=== PATIENT | female | born 1960 | race Two or more races ===

== ENCOUNTER 2021-09-06 15:32 | Emergency (ER) | payer MEDICAID, SELFPAY ==
--- NOTE | ~2021-09-06 | XR_ITS ---
EXAMINATION: XR SHOULDER, LEFT CLINICAL INFORMATION: Fall, trauma, pain COMPARISON: None TECHNIQUE: Left shoulder is imaged in 3 views. FINDINGS: There is no fracture or dislocation. The acromioclavicular alignment appears normal. Left lung apex shows no pneumothorax or pleural reaction. There are no visible rotator cuff calcifications. XR/XR shoulder LT min 2V IMPRESSION: Unremarkable left shoulder.
[2021-09-06 16:25] VITALS: BP 109/65; PULSE 84; RESP 19; TEMP 36.9; O2SAT 96; BMI 21.4
--- NOTE | 2021-09-06 18:08 | ED_ITS ---
HPI - Extremity Problem General Chief complaint: Extremity Injury, Upper Stated complaint: shoulder pain Time Seen by Provider: 09/06/21 18:04 Source: patient Mode of arrival: ambulatory Limitations: no limitations History of Present Illness HPI Narrative: 61-year-old female previously healthy here with reports of left shoulder pain for 3 months after a mechanical fall. Patient tells me she had a trip and fall landing on the left shoulder. There was no head injury or loss of consciousness. Since then she has had persistent left shoulder pain with radiation down the arm. She is taking Motrin with continued symptoms. She tells me that she does not have a primary care doctor and has tried calling and has an appointment in October of next year to be seen. Related Data Previous Rx's Medication Instructions Recorded cyclobenzaprine 10 mg tablet 10 mg PO TID PRN #10 tab 09/06/21 ibuprofen 600 mg tablet 600 mg PO Q8H PRN #20 tab 09/06/21 prednisone 20 mg tablet 40 mg PO DAILY #10 tab 09/06/21 Allergies Allergy/AdvReac Type Severity Reaction Status Date / Time ENVIROMENTAL Allergy Unknown ITCHY EYES Uncoded 06/02/20 17:13 Review of Systems Review of Systems: Yes all other systems are reviewed and are negative Constitutional: Constitutional: Reports no additional constitutional complaints, Denies body ache(s), Denies chills, Denies fever(s), Denies headache(s) and Denies weakness Eyes: Eyes: Reports no additional eye complaints and Denies change in vision ENT: Reports system reviewed and no additional complaints, except as documented, Denies dizziness, Denies headache(s), Denies nasal congestion, Denies nasal discharge and Denies neck pain Cardiovascular: Cardiovascular: Reports no additional cardiovascular complaints, Denies chest pain, Denies leg edema and Denies dyspnea Respiratory: Respiratory: Reports no additional respiratory complaints, Denies cough and Denies dyspnea Gastrointestinal: Gastrointestinal: Reports no additional gastrointestinal complaints, Denies abdominal pain, Denies diarrhea, Denies nausea and Denies vomiting Genitourinary: Genitourinary: Reports no additional female genitourinary complaints and Denies urinary incontinence Musculoskeletal: Musculoskeletal: Reports no additional musculoskeletal complaints, Denies back pain, Reports arthralgias, Denies joint swelling, Denies neck pain, Denies numbness and Denies tingling Integumentary/Breasts: Skin/Breast: Reports system reviewed and no additional complaints, except as docu and Denies rash Neurologic: Reports system reviewed and no additional complaints, except as documented, Denies Abnormal speech present, Denies dizziness, Denies headache(s), Denies numbness, Denies tingling and Denies weakness PMFSH Past Medical History Attestation statement: The following information was validated with the patient. Source: old records reviewed and nursing notes reviewed Medical History No pertinent past medical history Social History Social History Advance Directives: No Advance Directives Information Provided: No Patient : No Physical Exam Vital Signs: Vital Signs: Last Vital Signs Temp 98.4 F 09/06/21 16:25 Pulse 84 09/06/21 16:25 Resp 19 09/06/21 16:25 BP 109/65 09/06/21 16:25 Pulse Ox 96 09/06/21 16:25 BMI result Body Mass Index 21.4 Const: General: cooperative, healthy appearing, comfortable and no acute distress Orientation/consciousness: patient oriented x3 Limitations: no limitations HENMT: Head: Yes normal to inspection Ears: hearing grossly normal manisha aterally General nose exam: Normal external nose present Face and sinus: Yes normal facial exam Mouth: Normal oral and palatal mucosa present Throat: Yes posterior oropharynx normal Eyes: General: appearance normal, both eyes and all related structures Pupils: Equal, round and reactive pupils present Neck: Neck: Yes normal visual inspection, Yes full ROM, Yes no lymphadenopathy and Yes no meningeal signs Chest: Chest palpation & inspection: normal inspection of the chest Resp: Effort & Inspection: normal respiratory effort Auscultation: clear to auscultation bilaterally Cardio: Rate: regular rate Rhythm: regular rhythm Peripheral pulses: Peripheral pulses 2+ throughout GI: Inspection: Yes normal to inspection Palpation (GI): Soft to palpation and nontender Auscultation: normal bowel sounds Back/Spine/Pelvis: Thoracic/Lumbar Spine: thoracic and lumbar spine normal to inspection Skin: General skin exam: no rashes or lesions noted Neuro: General: patient oriented x3, no meningeal signs, no focal motor deficits and normal sensation to monofilament Cranial nerves: Yes Equal, round and reactive pupils present Cognition (Neuro): normal cognition Speech: No Abnormal speech present Gait exam (Neuro): Normal gait present Motor exam (neuro): 5/5 motor strength present throughout Extrem: Other: Tenderness to the entire left shoulder which is worsened with abduction. Tenderness over the left trapezius with palpable muscle spasm. T enderness over the right trapezius with palpable muscle spasm. No weakness of the left upper extremity (5/5 intact) Sensation is intact to left upper extremity. No swelling or deformity or ecchymosis. Pulses are palpable distally. Neurovascularly intact distally. General: Yes normal to inspection Course Course Course Narrative: Acute on chronic left shoulder pain after mechanical fall 3 months ago. Using Advil with continued symptoms. On exam patient has tenderness over the entire left shoulder which is worsened with abduction. Consider rotator cuff injury. X-rays show no bony abnormality. On exam the patient also has palpable muscle spasms and tenderness over the trapezius left greater than right. No cervical tenderness. No midline tenderness with full range of motion of the cervical spine. ?cervical radiculopathy with palpable muscle spasm. No neurological deficits or or red flag symptoms. Plan to add prednisone burst, low-dose muscle relaxant. Recommend patient use heat and gentle stretching. We discussed that she will likely need to do physical therapy and needs to work on setting up a primary care doctor. She was provided with a list of primary care doctors. She does have a upcoming appointment with 1 in October which she can keep. We did discuss she can ask to be placed on a wait list as well. Reviewed worrisome signs and symptoms of when to return to the emergency department. Comfortable discharge home. MDM - Extremity (Nontraumatic) Imaging Data left shoulder x-ray: Attestation: I personally reviewed and interpreted this imaging study as follows: Radiologist's impression: [address] [address] XRay Report Signed Patient: Maru Cole MR#: [id number] : 1960 Acct:[id number] Age/Sex: 61 / F ADM Date: 09/06/21 Loc: .ED Attending Dr: Ordering Physician: Generic ED Physician Date of Service: 09/06/21 Procedure(s): XR shoulder LT min 2V Accession Number(s): [id number] cc: Generic ED Physician~ EXAMINATION: XR SHOULDER, LEFT CLINICAL INFORMATION: Fall, trauma, pain? COMPARISON: None? TECHNIQUE: Left shoulder is imaged in 3 views. FINDINGS: There is no fracture or dislocation. The acromioclavicular alignment appears normal. Left lung apex shows no pneumothorax or pleural reaction. There are no visible rotator cuff calcifications.? XR/XR shoulder LT min 2V IMPRESSION: Unremarkable left shoulder. Discharge Plan Discharge Clinical Impression: Cervical radiculopathy, Trapezius muscle spasm, Left shoulder strain Patient Disposition: Home, Self-Care Instructions: Muscle Strain (ED), Cervical Radiculopathy (ED), Muscle Spasm (ED) Additional Instructions: Heat to the area Gentle stretching Continue the ibuprofen No heavy lifting You may continue to call primary care doctors and attempt to get an appointment. Most primary care doctors have a wait list that you may be asked to be put on. See attached list. Prescriptions: New prednisone 20 mg tablet 40 mg PO DAILY Qty: 10 RF: 0 cyclobenzaprine 10 mg tablet 10 mg PO TID PRN (Reason: muscle spasm) Qty: 10 RF: 0 ibuprofen 600 mg tablet 600 mg PO Q8H PRN (Reason: pain) Qty: 20 RF: 0 Referrals: Physician,None [Primary Care Provider] - 2 days Interventions: ED Discharge Assessment Last Done: 09/06/21 18:32 Discharge Date/Time: 09/06/21 18:33
== END 2021-09-06 18:33 | disposition home or self-care (01) ==
LOC: HO.ED 18:20
PROVIDERS: Emergency Provider Emergency Medicine Emergency Medical Services
DX: S46.912A Strain of unspecified muscle, fascia and tendon at shoulder and upper arm level, left arm, initial encounter (principal); M54.12 Radiculopathy, cervical region; M54.2 Cervicalgia; M25.512 Pain in left shoulder; W01.0XXA Fall on same level from slipping, tripping and stumbling without subsequent striking against object, initial encounter; Y93.9 Activity, unspecified; Y92.9 Unspecified place or not applicable; Y99.9 Unspecified external cause status; Z79.899 Other long term (current) drug therapy
CPT/HCPCS: 73030; 99283

== ENCOUNTER 2021-09-13 10:57 | Outpatient (REF) | payer MEDICAID, SELFPAY ==
--- NOTE | ~2021-09-13 | XR_ITS ---
EXAMINATION: XR CERVICAL SPINE CLINICAL INFORMATION: Reason for Exam CERVICALGIA COMPARISON: None TECHNIQUE: 6 views of the cervical spine were obtained. XR/XR cervical spine min 6V FINDINGS/IMPRESSION: The cervical spine is visualized to the level of C7 on the lateral view. 2 mm anterolisthesis of C4 on C5. Vertebral body heights are maintained. Technically limited odontoid view with the relationship of the lateral masses of C1-C2 largely obscured. Moderate degenerative disc disease at C3-C4, C5-C6 and C6-C7, manifested by loss of disc space height and facet arthropathy. Uncovertebral hypertrophy and facet arthropathy results in mild neural foraminal narrowing on the right at C5-C6. Obliquity of the view obscures evaluation of the left neural foramina. No prevertebral soft tissue swelling.
== END 2021-09-13 10:58 | disposition home or self-care (01) ==
LOC: HO.XRAY 10:57
PROVIDERS: PCP Emergency Medicine; Visit Provider Emergency Medicine
DX: M54.2 Cervicalgia (principal)
CPT/HCPCS: 72052

== ENCOUNTER 2021-09-27 15:50 | Outpatient (REF) | payer MEDICAID, SELFPAY ==
--- NOTE | ~2021-09-27 | MR_ITS ---
MR CERVICAL SPINE WITHOUT IV CONTRAST CLINICAL INFORMATION: Disc degeneration. Spinal stenosis. COMPARISON: None available TECHNIQUE: MRI of the cervical spine was obtained using routine sequences without contrast. FINDINGS: Cervical alignment is maintained. Partially imaged rightward convex scoliotic curvature of the thoracic spine. Vertebral body heights are preserved. There is moderate disc volume loss at C3-C4, C5-C6, and C6-C7. There is no bone marrow edema. There are no acute fractures. Brain cervical junction is unremarkable. Partially imaged intracranial compartment is unremarkable. Cervical arterial flow voids are preserved. No significant extraspinal soft tissue findings. Mild fluid signal within the central canal the cervical spinal cord of doubtful clinical significance. C2-C3: Right-sided facet arthropathy and uncovertebral joint spurring result in mild right-sided foraminal encroachment. No central canal and no left foraminal stenosis. C3-C4: Disc osteophyte without central canal stenosis. Uncovertebral joint spurring and facet arthropathy result in mild bilateral foraminal encroachment. The right vertebral artery courses into the right neural foramen. C4-C5: Shallow central disc protrusion without central canal stenosis. No foraminal stenosis. C5-C6: Disc osteophyte mildly narrows the central canal. No foraminal stenosis. C6-C7: Disc osteophyte mildly narrows the central canal. No significant foraminal stenosis. C7-T1: Disc contour normal. Bilateral facet arthropathy. No central canal stenosis and no foraminal stenosis. MR/MR cervical spine wo con IMPRESSION: Multilevel cervical spondylosis. There is no severe central canal stenosis and there is no severe foraminal stenosis within the cervical spine. The tortuous right vertebral artery courses into the right neural foramen at C3-C4.
== END 2021-09-27 15:51 | disposition home or self-care (01) ==
LOC: HO.MRI 15:50
PROVIDERS: Visit Provider Emergency Medicine
DX: M48.02 Spinal stenosis, cervical region (principal); M50.30 Other cervical disc degeneration, unspecified cervical region
CPT/HCPCS: 72141

== ENCOUNTER 2023-09-10 16:02 | Outpatient (REF) | payer MEDICAID, SELFPAY ==
[2023-09-10 17:31] LABS: MANUAL DIFF FLAG NO
[2023-09-10 18:00] LABS: Basophils Absolute Auto 0.1 X10*3/uL (0.0-0.2); Basophils Percent Auto 0.6 % (0-2); Eosinophils Absolute Auto 0.2 X10*3/uL (0.0-0.4); Eosinophils Percent Auto 1.5 % (0-4); Hematocrit 33.1 % (37.0-47.0); Hemoglobin 10.2 g/dl (12.0-16.0); Imm Gran Abs Auto 0.03 X10*3/uL (0.00-0.03); Imm Gran Pct Auto 0.3 % (0.0-0.4); Lymphocytes Absolute Auto 2.6 X10*3/uL (1.2-4.9); Lymphocytes Percent Auto 26.5 % (20-40); Mean Corpuscular HGB Conc 30.8 g/dl (31.0-35.0); Mean Corpuscular Hemoglobin 24.6 pg (27.0-33.0); Mean Corpuscular Volume 79.8 fL (80.0-98.0); Mean Platelet Volume 10.4 fL (9.4-12.3); Monocytes Absolute Auto 0.6 X10*3/uL (0.1-1.2); Monocytes Percent Auto 6.1 % (2-11); Neutrophils Absolute Auto 6.5 x10*3/uL (2.0-8.3); Platelet Count 322 X10*3/uL (160-400); Red Blood Count 4.15 X10*6/uL (4.20-5.50); Red Cell Distribution Width 15.8 % (11.0-16.0); White Blood Count 9.9 X10*3/uL (4.8-10.8)
[2023-09-10 18:38] LABS: Alanine Aminotransferase 13 U/L (0-31); Albumin Level 4.1 g/dL (3.5-5.0); Alkaline Phosphatase 76 U/L (39-117); Anion Gap 10 (12-20); Aspartate Amino Transferase 18 U/L (5-31); Bilirubin Direct < 0.2 mg/dL (0.0-0.5); Bilirubin Total 0.1 mg/dL (0.0-1.0); Blood Urea Nitrogen 13 mg/dL (9-16); Calcium 10.2 mg/dL (8.4-10.2); Carbon Dioxide 25 mmol/L (22-29); Chloride 109 mmol/L (96-108); Estimated Glomerular Filt Rate > 60; Glucose Random 108 mg/dL (60-115); Potassium 4.1 mmol/L (3.3-5.1); Sodium 140 mmol/L (135-145); Total Protein 7.9 g/dL (6.5-8.0)
[2023-09-10 18:52] LABS: Erythrocyte Sedimentation Rate 50 MM/HR (0-20)
[2023-09-12 15:21] LABS: C Reactive Protein 0.12 mg/dL (< or = 0.50)
== END 2023-09-10 16:03 | disposition home or self-care (01) ==
LOC: HO.HHCL 16:02
PROVIDERS: Visit Provider Internal Medicine
DX: R42 Dizziness and giddiness (principal); G45.3 Amaurosis fugax
CPT/HCPCS: 36415; 80048; 80076; 84443; 85025; 85652; 86140

== ENCOUNTER 2023-09-13 11:11 | Outpatient (REF) | payer MEDICAID, SELFPAY ==
[2023-09-17 19:13] LABS: PES - Abn Protein Band 1 0.4 g/dL (NONE DETECTED); Prot Elec - Albumin 4.1 g/dL (3.8-4.8); Prot Elec - Alpha1 0.3 g/dL (0.2-0.3); Prot Elec - Alpha2 0.8 g/dL (0.5-0.9); Prot Elec - Beta 1 0.5 g/dL (0.4-0.6); Prot Elec - Beta 2 0.4 g/dL (0.2-0.5); Prot Elec - Gamma 1.2 g/dL (0.8-1.7); Prot Elec - Total Protein 7.2 g/dL (6.1-8.1)
== END 2023-09-13 11:12 | disposition home or self-care (01) ==
LOC: HO.HHCL 11:11
PROVIDERS: Visit Provider Internal Medicine
DX: R42 Dizziness and giddiness (principal); G45.3 Amaurosis fugax
CPT/HCPCS: 36415; 84165

== ENCOUNTER 2023-09-19 15:30 | Outpatient (AMB) | payer MEDICAID, SELFPAY ==
--- NOTE | 2023-09-19 15:36 | MHC.OFFVIS ---
Intake Vital Signs 09/19/23 15:52 Weight 144 lb BP 121/64 Blood Pressure Location Lt brachial Position Sitting Pulse 92 Intake Visit Reasons: temporal artery biopsy Intake Note: This patient presents for an assessment for temporal artery biopsy. Patient c/o; reports headaches, reports dizziness. Steel Pourer Required: No Accompanied by: Self / Same As Patient Allergies ENVIROMENTAL Allergy (Unknown, Uncoded 09/19/23 15:45) ITCHY EYES Medication List - Last Reconciled 09/19/23 by Slim Rasheed MD cyclobenzaprine 10 mg PO TID PRN ibuprofen 600 mg PO Q8H PRN prednisone 40 mg (2 x 20 mg) PO DAILY HPI temporal artery biopsy HPI Details 63 year old female referred for temporal artery biopsy. She apparently has a history of frequent headaches which she describes as bilateral oral the right more than the left. She also says that she has frequent dizziness as well. She does state that her symptoms are more of dizziness rather than headaches. Her referral also states that she has amaurosis fugax. She had been seeing Dr. Butler and was therefore referred to me for temporal artery biopsy. [facility] Medical History Chronic headaches No pertinent past medical history Social History Alcohol intake: never Patient Tobacco Use Status: Never used Tobacco Review of Systems Const Denies chills and Denies fever(s) Card Denies chest pain, Denies dyspnea and Denies dyspnea on exertion Resp Denies cough, Denies dyspnea and Denies dyspnea on exertion GI Denies hematochezia and Denies change in bowel habits Denies hematuria Musc Denies back pain and Denies limited range of motion Neuro Denies focal weakness and Denies convulsions Psych Denies depression and Denies mood swings Physical Exam Const General: comfortable and no acute distress Orientation/consciousness: patient oriented x3 HEENT Other: No tenderness on both temporal areas Neck Neck: Yes no lymphadenopathy Resp Auscultation: clear to auscultation bilaterally Cardio Rhythm: regular rhythm GI Palpation (GI): Soft to palpation, nontender and no guarding Neuro General: patient oriented x3 Assessment & Plan Assessment & Plan (1) Chronic headaches: Code(s): R51.9 - Headache, unspecified; G89.29 - Other chronic pain Plan: I explained to her the technique of temporal artery biopsy which may be done under MAC. However, she stated that she does not want any surgery at this time. She says she wants to wait to see her neurologist before she decides on any procedure at this point . She is scheduled to see her neurologist towards the end of the month. I gave her my card and I explained to her that she is welcome to come back to the office if she decides to proceed with the temporal artery biopsy. Plan I explained to her the technique of temporal artery biopsy and this may be best done under anesthesia. I reviewed the risks including but not limited to bleeding, infections, nerve injury, as well as the benefits and alternatives. Coding Level of Care Code New Pt Level 3 (54325) Diagnoses Chronic headaches R51.9; G89.29
[2023-09-19 15:52] VITALS: BP 121/64; PULSE 92
== END 2023-09-19 15:59 | disposition home or self-care (01) ==
PROVIDERS: PCP Registered Nurse; Referring Provider Internal Medicine; Visit Provider Surgery
DX: R51.9 Headache, unspecified (principal); G89.29 Other chronic pain
CPT/HCPCS: 99203

== ENCOUNTER → 2023-09-19 15:30 | Outpatient (BNVA) | payer MEDICAID, SELFPAY | PROVIDERS: PCP Registered Nurse; Referring Provider Internal Medicine; Visit Provider Surgery | DX: R51.9 Headache, unspecified (principal); G89.29 Other chronic pain | CPT/HCPCS: 99202 ==

== ENCOUNTER 2023-09-27 13:39 | Outpatient (REF) | payer MEDICAID, SELFPAY ==
[2023-09-27 16:53] LABS: Vitamin D 25-OH Total 15.2 ng/mL (>30)
== END 2023-09-27 13:40 | disposition home or self-care (01) ==
LOC: HO.HHCL 13:39
PROVIDERS: Visit Provider Internal Medicine
DX: R42 Dizziness and giddiness (principal); G45.3 Amaurosis fugax
CPT/HCPCS: 36415; 82306

== ENCOUNTER → 2023-10-08 08:27 | Outpatient (REF) | payer MEDICAID, SELFPAY ==
--- NOTE | 2023-10-08 08:30 | CA_ITS ---
Transthoracic Echocardiogram Patient (Last, First, Middle): Maru Cole, Gender: Female Date of : 1960 Age: 63 Procedure Date: 10/08/2023 Procedure Type: Transthoracic Echocardiogram Location: OP Height: 157.48 cm Weight: 64.41 kg BSA: 1.65 m2 Heart Rate: bpm BP: 110 / 70 mmHg Drain Cleaner Plumber: THEO Referring MD: Thang Randhawa MD Symptoms: R42 DIZZINESS G45.3 AMAUROSIS FUGAX Study Quality: Adequate ECG Rhythm: Sinus Conclusions: - The left ventricular systolic function is normal. The calculated ejection fraction is 67% by biplane method. - No obvious valvular pathology seen on this study. - Small to moderate pericardial effusion adjacent to the left ventricle. Findings Left Ventricle Normal left ventricular cavity size. There is normal left ventricular wall thickness. The left ventricular systolic function is normal. The calculated ejection fraction is 67% by biplane method. There is no evidence of regional wall motion abnormalities. Diastolic function is normal for age. LV peak GLS -20.7%. Right Ventricle Normal right ventricular cavity size and systolic function. Atria Both atria are normal in size. Aortic Valve There is a normal trileaflet aortic valve. There is no aortic valve stenosis. There is no aortic valve regurgitation. Mitral Valve The mitral valve appears normal. There is trace mitral valve regurgitation. There is no mitral valve stenosis. Pulmonic Valve The pulmonic valve is likely normal. Tricuspid Valve There is trace tricuspid valve regurgitation. There is no evidence of pulmonary hypertension. Great Vessels The asc aorta is normal in size. Venous The inferior vena cava is normal in size and collapses greater than 50% with inspiration. Pericardium/Pleural There are no definitive echocardiographic findings of tamponade physiology. Small to moderate pericardial effusion adjacent to the left ventricle. Prior Study Comparison No prior study available for comparison. Recommendations, Care & Conclusions No obvious valvular pathology seen on this study. Measurements 2D Linear Measurements IVSd: 0.94 0.6-0.9/0.6-1.0 cm LVIDd: 3.82 3.9-5.3/4.2-5.9 cm LVIDd Index: 2.32 2.4-3.2/2.2-3.1 cm/m2 LVIDs: 2.21 2.0-3.6 cm LVPWd: 0.88 0.7-1.1 cm LA Diam: 3.00 2.7-3.8/3.0-4.0 cm LAIDs Index: 1.82 1.5-2.3 cm/m2 LV Mass: 128.91 67-162/88-224 g LV Mass Index: 78.13 43-95/49-115 g/m2 LVOT Diam: 1.90 3.0+(-)1.3 cm 2D Systolic Function EF 4C: 66.10 >55% EF 2C: 69.10 >55% EF BiP: 66.60 >55% Mitral Valve MV Pk E: 0.65 MV PK A: 0.57 MV Decel Time: 217.00 E/A: 1.10 E'Lateral: 7.94 E'Medial: 6.53 E/E' Med: 9.90 E/E' Lat: 8.10 PHT: 64.00 MVA PHT: 3.44 Decel Cameron: 2.98 Aortic Valve AoV Pk Uriah: 1.47 AoV Mn Uriah: 0.95 AoV VTI: 0.30 AoV Pk Grad: 9.00 Aov Mn Grad: 4.00 NATALIE Cont.VTI: 2.16 LVOT LVOT Pk Uriah: 1.17 LVOT Mn Uriah: 0.73 LVOT VTI: 0.23 LVOT Pk Grad: 5.00 LVOT Mn Grad: 3.00 LVOT Diam: 1.90 LVOT Area: 2.84 Diastolic Function MV Pk E: 0.65 MV Pk A: 0.57 E/A: 1.10 E'Medial: 6.53 E/E' Med: 9.90 E' Laterial: 7.94 E/E' Lat: 8.10 Right Ventricle TAPSE (mm): 18.70 TVS' Uriah: 13.10 Tricuspid Valve TR Pk Uriah: 2.17 TR Pk Grad: 19.00 RA Press: 3.00 RVSP: 22.00 Great Vessels Aorta Sinus of Valsalva: 2.59 2.0-3.[address] [place]: 2.23 1.7-3.4 cm Ao Asc: 2.40 2.1-3.4 cm Updated in Other Vendor System with Status of Final Kevin Ramirez MD electronically signed on 10/09/2023 9:40:31 AM with status of Final
--- NOTE | 2023-10-08 08:36 | ECG_ITS ---
Test Reason : DIZZINESS Blood Pressure : / mmHG Vent. Rate : 059 BPM Atrial Rate : 059 BPM P-R Int : 146 ms QRS Dur : 074 ms QT Int : 386 ms P-R-T Axes : 068 -17 066 degrees QTc Int : 382 ms Sinus bradycardia Otherwise normal ECG No previous ECGs available Referred By: Thang Randhawa Electronically Signed By:Enio Dc
== END ==
LOC: HO.CARD 08:27
PROVIDERS: PCP Registered Nurse; Visit Provider Internal Medicine
DX: R42 Dizziness and giddiness (principal); G45.3 Amaurosis fugax
CPT/HCPCS: 93005; 93306; 93356

== ENCOUNTER → 2023-10-08 08:36 | Outpatient (BNV) | payer MEDICAID, SELFPAY | PROVIDERS: PCP Registered Nurse; Visit Provider Internal Medicine Cardiovascular Disease | DX: R00.1 Bradycardia, unspecified (principal) | CPT/HCPCS: 93010; 93306 ==

== ENCOUNTER 2023-10-14 09:52 | Outpatient (REF) | payer MEDICAID, SELFPAY ==
--- NOTE | ~2023-10-14 | US_ITS ---
EXAMINATION: US EXTRACRANIAL CAROTID DUPLEX, BILATERAL CLINICAL INFORMATION: Amaurosis fugax COMPARISON: None available. TECHNIQUE: Real-time ultrasound and Doppler techniques (integrating B-mode 2-D vascular images, Doppler spectral analysis and color-flow Doppler imaging) were utilized to interrogate the extracranial carotid arteries, the vertebral arteries and proximal subclavian arteries bilaterally. The degree of stenosis is determined by criteria similar to NASCET. FINDINGS: Right Side: 1. There is no atherosclerotic plaque seen in the bifurcation/proximal ICA region. 2. The common carotid artery PSV proximally is 187 cm/s and distally 112 cm/s. 3. The proximal internal carotid artery velocities are 92 cm/s systolic and 19.9 cm/s diastolic. 4. The proximal external carotid artery PSV is 126 cm/s. 5. The vertebral artery shows antegrade flow. 6. The subclavian artery waveforms with elevated velocities suggestive of stenosis. Left Side: 1. There is no atherosclerotic plaque seen in the bifurcation/proximal ICA region. 2. The common carotid artery PSV proximally is 90 cm/s and distally 123 cm/s. 3. The proximal internal carotid artery velocities are 70.4 cm/s systolic and 25.2 cm/s diastolic. 4. The proximal external carotid artery PSV is 116 cm/s. 5. The vertebral artery shows antegrade flow. 6. The subclavian artery waveforms are normal. US/US carotid duplex BI IMPRESSION: 1. RIGHT: Normal right internal carotid artery without atherosclerotic plaque or hemodynamically significant stenosis. 2. LEFT: Normal left internal carotid artery without atherosclerotic plaque or hemodynamically significant stenosis. 3. Elevated peak systolic velocities seen within the right subclavian artery may be related to tortuosity or stenosis. There is no retrograde flow within the ipsilateral vertebral artery to suggest subclavian steal syndrome.
== END 2023-10-14 09:53 | disposition home or self-care (01) ==
LOC: HO.US 09:52
PROVIDERS: PCP Registered Nurse; Visit Provider Internal Medicine
DX: R42 Dizziness and giddiness (principal); G45.3 Amaurosis fugax
CPT/HCPCS: 93880

== ENCOUNTER 2023-10-31 10:32 | Outpatient (REF) | payer MEDICAID, SELFPAY ==
[2023-10-31 13:56] LABS: Vitamin D 25-OH Total 29.7 ng/mL (>30)
[2023-11-04 14:42] LABS: IgA 229 mg/dL (70-320); IgG 1047 mg/dL (600-1540); IgM 653 mg/dL (50-300)
== END 2023-10-31 10:33 | disposition home or self-care (01) ==
LOC: HO.HHCL 10:32
PROVIDERS: Visit Provider Internal Medicine
DX: R42 Dizziness and giddiness (principal); G45.3 Amaurosis fugax; R70.0 Elevated erythrocyte sedimentation rate
CPT/HCPCS: 36415; 82306; 82784; 86334

== ENCOUNTER 2023-11-14 10:00 | Outpatient (REF) | payer MEDICAID, SELFPAY ==
--- NOTE | ~2023-11-14 | MR_ITS ---
EXAMINATION: MR BRAIN WITHOUT AND WITH CONTRAST CLINICAL INFORMATION: 63-year-old with ataxic gait and amaurosis fugax with dizziness. COMPARISON: None available. TECHNIQUE: Multiplanar, multisequence MRI of the brain was obtained before and after the intravenous administration of 6 mL Gadavist. FINDINGS: BRAIN VOLUME: Within normal limits within the limitations of qualitative assessment. STRUCTURAL: No malformations. BRAIN AND MENINGES: DWI sequence demonstrates no restricted diffusion to suggest acute or subacute cerebral ischemia. The brain is normal in morphology and signal intensity. Gradient refocused imaging demonstrates no abnormal susceptibility-weighted signal loss to suggest hemorrhage, hemosiderin staining or abnormal mineralization. On image 7 of series 9, there is a questionable 2 mm enhancing focus in the fundus of the left IAC. Dedicated MR of the IACs without and with contrast is recommended to further assess this. Otherwise, no intracranial mass lesions, significant space-occupying process or mass effect are identified and there is no pathologic intracranial enhancement. Incidental note is made of a developmental venous anomaly in the right parietal lobe. VENTRICLES AND SUBARACHNOID SPACES: The ventricular system and subarachnoid spaces are within normal range; there is no hydrocephalus. ORBITAL STRUCTURES: Allowing for susceptibility artifact along the anterior globes, the visualized orbital structures are grossly unremarkable within the limitations of the study. VASCULAR: Signal voids are noted in the visualized major intracranial vessels. OSSEOUS STRUCTURES, SINUSES/MASTOIDS, EXTRACRANIAL SOFT TISSUES: Osseous marrow signal intensity appears grossly within normal limits. There is nasal septal deviation to the left with minor ethmoid mucosal thickening and a small retention cyst in the left maxillary sinus. There are small nonenlarged bilateral intraparotid lymph nodes. MR/MR head/brain wo/w con IMPRESSION: 1. Questionable 2 mm enhancing focus in the fundus of the left internal auditory canal. Dedicated MR of the IACs without and with contrast is recommended to further assess this to exclude a small schwannoma. 2. Otherwise normal MRI of the brain without and with contrast. 3. Nasal septal deviation to the left with minor ethmoid mucosal thickening and a small retention cyst in the left maxillary sinus.
[2023-11-14] MEDS: gadobutroL 7.5 ML VIAL IVPUSH (11:13)
== END 2023-11-14 10:01 | disposition home or self-care (01) ==
LOC: HO.MRI 10:00
PROVIDERS: PCP Registered Nurse; Visit Provider Internal Medicine
DX: R42 Dizziness and giddiness (principal); G45.3 Amaurosis fugax
CPT/HCPCS: 70553; A9585

== ENCOUNTER → 2023-12-18 10:20 | Outpatient (BNV) | payer MEDICAID, MEDICARE, SELFPAY | PROVIDERS: PCP Registered Nurse; Visit Provider Internal Medicine | DX: D47.2 Monoclonal gammopathy (principal) | CPT/HCPCS: 99204; 99213 ==

== ENCOUNTER 2024-01-21 09:25 | Outpatient (REF) | payer MEDICAID, SELFPAY ==
--- NOTE | ~2024-01-21 | MR_ITS ---
EXAMINATION: MR BRAIN WITHOUT AND WITH CONTRAST CLINICAL INFORMATION: Abnormality of the internal auditory canal COMPARISON: MRI brain on 11/14/2023 TECHNIQUE: Multiplanar, multisequence MRI of the brain was obtained before and after the intravenous administration of 6.5 mL Gadavist. Dedicated IAC pulse series were also obtained. FINDINGS: The inner ear structures including the cochlea, vestibules, and semicircular canals exhibit preserved CSF signal intensity with no pathologic enhancement. The vestibular aqueducts are not enlarged. Cranial nerves VII and VIII complexes are normal in morphology. No enhancing CP angle/retrocochlear lesion. No acute intracranial hemorrhage or infarct. Few scattered and confluent periventricular and deep white matter T2/FLAIR hyperintensities, nonspecific however commonly seen with small vessel ischemic disease. Developmental venous anomaly in the right parietal lobe. Otherwise, no abnormal intraparenchymal enhancement. No midline shift or hydrocephalus. No acute extra-axial fluid collections. The osseous structures are unremarkable. The pituitary gland, pineal gland and remaining midline structures are unremarkable. No orbital pathology. The paranasal sinuses and mastoid air cells are clear. MR/MR head/brain wo/w con IMPRESSION: No retrocochlear pathology.
[2024-01-21] MEDS: gadobutroL 7.5 ML VIAL IVPUSH (10:39)
== END 2024-01-21 09:26 | disposition home or self-care (01) ==
LOC: HO.MRI 09:25
PROVIDERS: PCP Registered Nurse; Visit Provider Registered Nurse
DX: Q16.5 Congenital malformation of inner ear (principal)
CPT/HCPCS: 70553; A9585

== ENCOUNTER 2024-08-06 15:41 | Emergency (ER) | payer OTHER, SELFPAY ==
[2024-08-06 16:20] VITALS: BP 120/50; PULSE 81; RESP 18; TEMP 36.8; O2SAT 94; BMI 24.3
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
[2024-08-06 20:35] VITALS: BP 117/62; PULSE 70; RESP 16; TEMP 36.4; O2SAT 98
[2024-08-06] MEDS: Ondansetron ODT 8 MG TAB.RAPDIS TRANSLINGU (21:49)
[2024-08-06] MEDS: Ibuprofen 400 MG TABLET PO (21:49)
[2024-08-06] MEDS: oxyCODONE HCl Immed Release 5 MG TABLET PO (21:49)
[2024-08-06 22:25] VITALS: BP 116/61; PULSE 70; RESP 16; TEMP 36.2; O2SAT 97
[2024-08-06 22:46] VITALS: BP 116/61; PULSE 70; RESP 16; TEMP 36.2; O2SAT 97
== END 2024-08-06 22:46 | disposition home or self-care (01) ==
PROVIDERS: Emergency Provider Emergency Medicine; PCP Registered Nurse
DX: S09.93XA Unspecified injury of face, initial encounter (principal); R51.9 Headache, unspecified; R42 Dizziness and giddiness; R11.0 Nausea; V43.52XA Car driver injured in collision with other type car in traffic accident, initial encounter; Y93.89 Activity, other specified; Y92.488 Other paved roadways as the place of occurrence of the external cause; Y99.8 Other external cause status; Z79.899 Other long term (current) drug therapy
CPT/HCPCS: 99283; 99284

== ENCOUNTER 2024-08-29 10:37 | Outpatient (REF) | payer OTHER, MEDICAID, MEDICARE, SELFPAY | END 2024-08-29 10:38 | disposition home or self-care (01) | LOC: HO.XRAY 10:37 | PROVIDERS: PCP Registered Nurse; Visit Provider Chiropractor | DX: S39.012D Strain of muscle, fascia and tendon of lower back, subsequent encounter (principal); S29.012D Strain of muscle and tendon of back wall of thorax, subsequent encounter | CPT/HCPCS: 72072; 72100 ==

== ENCOUNTER 2025-06-25 14:34 | Outpatient (REF) | payer MEDICAID, SELFPAY ==
--- NOTE | ~2025-06-25 | XR_ITS ---
EXAMINATION: XR SACRUM AND COCCYX CLINICAL INFORMATION: Chronic low back pain. COMPARISON: CT and pelvis 11/01/2017 TECHNIQUE: 2 views of the sacrum and 2 views of the coccyx were obtained. FINDINGS: There is normal symmetry of bilateral SI joints and hip joints. There is 2 cm sclerotic density right sacrum question bone island . The soft tissues are normal. XR/XR sacrum coccyx min 2V IMPRESSION: No bony abnormality seen. 2 cm sclerotic density right sacrum unchanged from previous CT exam 11/01/2017. It is likely benign. Electronically signed by: Rakesh Olvera MD 06/25/2025 03:57 PM EDT
== END 2025-06-25 14:35 | disposition home or self-care (01) ==
LOC: HO.HHCL 14:34
PROVIDERS: PCP Registered Nurse; Visit Provider Registered Nurse
DX: M54.50 Low back pain, unspecified (principal); G89.29 Other chronic pain
CPT/HCPCS: 72220

== ENCOUNTER → 2025-06-25 14:45 | Outpatient (BNV) | payer MEDICAID, SELFPAY | PROVIDERS: PCP Registered Nurse; Visit Provider Radiology Diagnostic Radiology | DX: M46.1 Sacroiliitis, not elsewhere classified (principal) | CPT/HCPCS: 72220 ==